=== PATIENT | male | born 1970 | race Caucasian/White ===

== ENCOUNTER 2016-06-30 09:19 | Emergency (ER) | payer BC ==
[~2016-06-30] VITALS: Ht 172.7 cm; Wt 100.0 kg
[~2016-06-30 09:19] MED LIST: ASPI-611 PO; FENO160T9 PO; LISI-15 PO; VERA180T7 PO
[2016-06-30 09:21] VITALS: Ht 172.7 cm; Wt 100.0 kg
--- OUTSIDE RECORDS SUMMARY | 2016-06-30 09:22 | XMS REPORT | Referral Summary ---
Author Author [facility] Organization [facility] Address Unknown Phone Unavailable Care Team Providers Care Respiratory Scientist Name Role Phone Priya Valerio Primary Care Physician [phone] Encounter [facility] [id number] Date(s): 03/05/16 - 03/05/16 [facility] [address] [place], [place] [address] Discharge Diagnosis: Hypertension Discharge Diagnosis: Hematuria Discharge Diagnosis: Ureteral stone with hydronephrosis Discharge Diagnosis: Hyperlipidemia Discharge Disposition: 01-Home or Self Care Attending Physician: Bridget Gutierrez MD Vital Signs Most recent to 1 oldest [Reference Range]: Blood Pressure 110/78 mmHg [90-140/60-90 mmHg] (03/05/16 8:49 AM) Problem List Condition Effective Dates Status Health Status Informant Dyslipidemia(Confirm Active ed) Essential Active hypertension (disorder)(Confirmed ) High Active cholesterol(Confirme d) Hyperlipidemia(Confi Active rmed) Hypertension(Confirm Active ed) Kidney Active stones(Confirmed) Muscle contraction Active headache(Confirmed) Overweight Active (finding)(Confirmed) Overweight(Confirmed Active ) Elevated Active cholesterol(Confirme d) Tension Active headache(Confirmed) Tension-type Active headache (disorder)(Confirmed ) Unspecified Active essential hypertension(Confirm ed) Allergies, Adverse Reactions, Alerts No Known Medication Allergies Medications Aspir 81 oral delayed release tablet 81 mg 1 tabs, Oral, Daily Start Date: 11/05/13 Status: Ordered atorvastatin 20 mg oral tablet 20 mg 1 tabs, Oral, Bedtime (once a day), # 90 tabs, 1 Refill(s), Pharmacy: [facility] #[id number], 1 tabs Oral Bedtime (once a day) Start Date: 11/30/15 Status: Ordered fenofibrate 160 mg oral tablet 160 mg 1 tabs, Oral, Daily, # 90 tabs, 1 Refill(s), Pharmacy: [facility] # [id number], 1 tabs Oral Daily Start Date: 11/30/15 Status: Ordered Flomax 0.4 mg oral capsule 0.4 mg 1 caps, Oral, Daily, # 30 caps, 0 Refill(s), Pharmacy: [facility] # [id number], 1 caps Oral Daily Start Date: 02/17/16 Status: Ordered Flomax 0.4 mg oral capsule 0.4 mg 1 caps, Oral, Daily, # 30 caps, 0 Refill(s) Start Date: 02/03/16 Status: Ordered lisinopril-hydrochlorothiazide 20 mg-12.5 mg oral tablet 1 tabs, Oral, Daily, # 90 tabs, 1 Refill(s), Pharmacy: [facility] #[id number] Start Date: 11/30/15 Status: Ordered verapamil 180 mg/24 hours oral capsule, extended release 1 tabs, Oral, Daily, # 90 tabs, 1 Refill(s), Pharmacy: [facility] #[id number] , 1 tabs Oral Daily Start Date: 11/30/15 Status: Ordered Results No data available for this section Immunizations Given and Recorded Vaccine Date Status Refusal Reason tetanus/diphth/pertuss (Tdap) adult/adol 11/30/15 Given tetanus-diphth toxoids (Td) adult/adol 02/26/04 Recorded Procedures Procedure Date Related Diagnosis Body Site Cystourethroscopy, with removal of foreign 03/05/16 body, calculus, or ureteral stent from urethra or bladder (separate procedure); simple Cystoscopy Ureteroscopy1 02/03/16 heart cath hernia repair orif right wrist 1auto-populated from documented surgical case Social History Social History Type Response Smoking Status Never smoker Assessment and Plan No data available for this section
--- OUTSIDE RECORDS SUMMARY | 2016-06-30 09:22 | XMS REPORT | Referral Summary ---
Author Author [facility] Organization [facility] Address Unknown Phone Unavailable Care Team Providers Care Rn Manager Name Role Phone Priya Valerio Primary Care Physician [phone] Encounter [facility] Date(s): 06/01/15 - 06/01/15 [facility] [address] [place] [email or web address] Discharge Diagnosis: Myalgia Discharge Disposition: 01-Home or Self Care Attending Physician: Marques Valerio MD Admitting Physician: Marques Valerio MD Vital Signs Most recent to 1 oldest [Reference Range]: Temperature Tympanic 36.1 degC [36.6-38.1 degC] *LOW* (06/01/15 8:47 AM) Peripheral Pulse 80 bpm Rate [60-100 bpm] (06/01/15 8:47 AM) Blood Pressure 131/81 mmHg [90-140/60-90 mmHg] (06/01/15 8:47 AM) Problem List Condition Effective Dates Status [...] Medications Aspir 81 oral delayed release tablet 1 tabs, Oral, Daily Start Date: 11/05/13 Status: Ordered atorvastatin 20 mg oral tablet 20 mg 1 tabs, Oral, Bedtime (once a day), # 90 tabs, 1 Refill(s), Pharmacy: [facility] #[id number], 1 tabs Oral Bedtime (once a day) Start Date: 06/01/15 Status: Ordered fenofibrate 160 mg oral tablet 160 mg 1 tabs, Oral, Daily, # 90 tabs, 1 Refill(s), Pharmacy: [facility] # [id number], 1 tabs Oral Daily Start Date: 06/01/15 Status: Ordered lisinopril-hydrochlorothiazide 20 mg-12.5 mg oral tablet 1 tabs, Oral, Daily, # 90 tabs, 1 Refill(s), Pharmacy: [facility] #[id number] Start Date: 06/01/15 Status: Ordered verapamil 180 mg/24 hours oral capsule, extended release 1 tabs, Oral, Daily, # 90 tabs, 1 Refill(s), Pharmacy: [facility] #[id number] , 1 tabs Oral Daily Start Date: 06/01/15 Status: Ordered Results Chemistry Most recent to 1 oldest [Reference Range]: Sodium Lvl [135-144 139 mEq/L mEq/L] (06/01/15 8:30 AM) Potassium Lvl 4.5 mEq/L [3.5-5.2 mEq/L] (06/01/15 8:30 AM) Chloride [99-111 105 mEq/L mEq/L] (06/01/15 8:30 AM) CO2 [23-31 mEq/L] 26 mEq/L (06/01/15 8:30 AM) AGAP [3-20] 8 (06/01/15 8:30 AM) BUN [9-21 mg/dL] 17 mg/dL (06/01/15 8:30 AM) Glucose Lvl [70-99 128 mg/dL mg/dL] *HI* (06/01/15 8:30 AM) Creatinine Lvl 1.02 mg/dL [0.72-1.25 mg/dL] (06/01/15 8:30 AM) eGFR [>60 mL/min] >60 mL/min 1 (06/01/15 8:30 AM) Calcium Lvl 10.2 mg/dL [8.9-10.5 mg/dL] (06/01/15 8:30 AM) Total CK [30-200 255 U/L U/L] *HI* (06/01/15 8:30 AM) Chol [0-199 mg/dL] 207 mg/dL *HI* (06/01/15 8:30 AM) Trig [0-149 mg/dL] 85 mg/dL (06/01/15 8:30 AM) HDL [40-84 mg/dL] 40 mg/dL (06/01/15 8:30 AM) LDL [0-130 mg/dL] 150 mg/dL *HI* (06/01/15 8:30 AM) VLDL Cholesterol 17 mg/dL [0-28 mg/dL] (06/01/15 8:30 AM) Cardiac Risk 5.2 [0.0-5.7] (06/01/15 8:30 AM) 1Result Comment: Multiply eGFR results by 1.21 for race. Immunizations Vaccine Date Refusal Reason tetanus-diphth toxoids (Td) adult/adol 02/26/04 Procedures Procedure Date Related Diagnosis Body Site Collection of venous blood by venipuncture 06/01/15 Social History Social History Type Response Smoking Status Never smoker Assessment and Plan Extracted from: Title: Office Visit Note Author: Marques Valerio MD Date: 06/01/15 Assessment/Plan Elevated cholesterol Hypertension Myalgia Ordered: Creatine Kinase Overall he seems to be doing well. I encouraged weight loss efforts and exercise. Labs today to include BMP, lipid panel, CPK. Continue current medications. 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
--- OUTSIDE RECORDS SUMMARY | 2016-06-30 09:22 | XMS REPORT | Continuity of Care Document ---
Author Author [facility] Address Unknown Phone Unavailable Care Team Providers Care Basket Turner Name Role Phone Marques Valerio PP Unavailable Payers Payer name Insurance type Covered democrat ID Authorization(s) Unknown Problems Condition Effective Dates (start - stop) Clinical Status Overweight - *Chronic Hypertension, Unspecified - *Chronic Hypertension, Unspecified - *Chronic Overweight - Chronic Hypertension, Unspecified - Chronic Other and unspecified hyperlipidemia - *Chronic Snoring - *Acute Family history of premature coronary artery diseas - *Chronic Hypertension, Benign - *Controlled Other and unspecified hyperlipidemia - *Chronic Kidney stone - *Resolved Other and unspecified hyperlipidemia - *Chronic Hypertension, Unspecified - *Chronic Hematuria - *Acute Abdominal pain, left upper quadrant - *Acute Hypertension, Benign - Uncertain Other and unspecified hyperlipidemia - Chronic TENSION HEADACHE NOS - Chronic Hypertension, Unspecified - Chronic Overweight - Chronic Family History Family Member Diagnosis Age At Onset Status Father (Alive) CAD Yes aunt (Unknown) Cancer - colon Yes Paternal grandmother (Unknown) Diabetes Yes aunt (Unknown) Hyperlipidemia Yes Paternal grandfather (Unknown) Premature CAD Yes Maternal grandmother (Unknown) Hypertension Yes Paternal grandfather (Unknown) Congestive heart failure Yes Maternal grandfather (Unknown) Hypertension Yes aunt (Unknown) Hypertension Yes Paternal grandfather (Unknown) Hypertension Yes Social History Social History Element Description Quantity Unknown Allergies, Adverse Reactions, Alerts Substance Reaction Severity Status Unknown Medications Medication Instructions Dosage Effective Dates (start - stop) Status fenofibrate 160 mg tablet Take 1 tablet by mouth every day. - Active lisinopril 20 mg-hydrochlorothiazide 12.5 mg tablet Take 1 by mouth every day. - Active verapamil ER 180 mg 24 hr capsule,extended release Take 1 tablet by mouth every day. - Active Aspir-81 81 mg tablet,delayed release take 1 tablet (81MG) by oral route every day 81 MG - Active Immunizations Vaccine Date Status Comments Td (adult) completed - Completed reason: previously given Results Test Name Date and Time Measure Units Reference Range Abnormal Flag Comments Panel Description: CBC WBC 08:11:00 7.4 K/uL 4.8-10.8 RBC 08:11:00 5.04 M/uL 4.00-5.20 HGB 08:11:00 15.2 g/dl 12.0-16.0 HCT 08:11:00 44.7 % 37.0-47.0 MCV 08:11:00 88.7 fL 82.0-99.0 MCH 08:11:00 30.2 pg 27.0-32.0 MCHC 08:11:00 34.0 g/dL 32.0-36.0 RDW 08:11:00 13.3 % 11.5-14.5 MPV 08:11:00 11.0 fL 8.8-14.8 Platelet Count 08:11:00 283 K/uL 150-400 Immature Granulocytes 08:11:00 0.3 % 0.0-1.0 Absolute Neutrophils 08:11:00 3.79 THOUS 1.90-7.00 Absolute Lymphocytes 08:11:00 2.24 THOUS 0.80-3.30 Absolute Monocytes 08:11:00 0.99 THOUS 0.30-1.00 Absolute Eosinophils 08:11:00 0.35 THOUS 0.00-0.50 Absolute Basophils 08:11:00 0.05 THOUS 0.00-0.20 Neutrophils 08:11:00 51 % 51-75 Lymphocytes 08:11:00 30 % 20-46 Monocytes 08:11:00 13 % 4-11 H Eosinophils 08:11:00 5 % 0-4 H Basophils 08:11:00 1 % 0-2 Testing performed at [facility] [address] [place] [address] Primer Inspector Mehdi Thompson MD Panel Description: Chemistry Profile Glucose 08:11:00 113 mg/dL 70-99 H BUN 08:11:00 21 mg/dL 7-19 H Creatinine 08:11:00 1.08 mg/dL 0.57-1.11 Calcium 08:11:00 9.8 mg/dL 8.9-10.5 Sodium 08:11:00 142 mEq/L 135-144 Potassium 08:11:00 4.6 mEq/L 3.5-5.2 Chloride 08:11:00 108 mEq/L 99-111 CO2 08:11:00 26 mEq/L 22-31 Albumin 08:11:00 4.4 g/dL 3.5-5.0 Bilirubin Total 08:11:00 0.6 mg/dL 0.2-1.2 Alkaline Phosphatase 08:11:00 58 U/L 40-150 Protein 08:11:00 7.2 g/dL 6.4-8.3 ALT (SGPT) 08:11:00 36 U/L 0-55 AST (SGOT) 08:11:00 20 U/L 5-34 Anion Gap 08:11:00 8 3-20 Globulin 08:11:00 2.8 g/dL 1.8-4.0 Testing performed at [facility] [address] [place] [id number] Primer Inspector Mehdi Thompson MD Panel Description: Lipid Profile-[facility] Cholesterol 08:11:00 248 mg/dL 0-199 H Triglycerides 08:11:00 137 mg/dL 0-149 HDL Cholesterol 08:11:00 39 mg/dL 40-84 L LDL Cholesterol 08:11:00 182 mg/dL 0-130 H VLDL Cholesterol 08:11:00 27 mg/dL 0-28 Cardiac Risk 08:11:00 6.4 0.0-5.0 H Testing performed at [facility] [address] [place], [place] [address] Primer Inspector Mehdi Thompson MD Panel Description: Non-HDL Cholesterol-[facility] Non-HDL Cholesterol 08:11:00 209 mg/dL 0-159 H Testing performed at [facility] [address] [place], [place] [address] Primer Inspector Mehdi Thompson MD Panel Description: EGFR-[facility] eGFR 08:11:00 55 mL/min >60 A Multiply eGFR results by 1.21 for race.Testing performed at [facility] [address] [place], [place] [address] Primer Inspector Mehdi Thompson MD Panel Description: Urinalysis with Reflex Microscopic Appearance 08:11:00 Clear Color 08:11:00 Yellow Glucose, Urine 08:11:00 Negative Negative Ketones 08:11:00 Negative Negative Blood 08:11:00 Negative Negative Protein 08:11:00 Negative Negative Nitrites 08:11:00 Negative Negative Bilirubin 08:11:00 Negative Negative Specific [place] 08:11:00 1.025 1.003-1.03 pH 08:11:00 5.0 5.0-8.0 Urobilinogen 08:11:00 0.2 mg/dL <1.0 Leukocyte Esterase 08:11:00 Negative Negative Testing performed at [facility] [address] [place], [place] [id number] Primer Inspector Mehdi Thompson MD Vital Signs Date / Time: Height Weight Pulse Rate Blood Pressure Temperature /14:11:00 67.00 in 219.00 lbs 68 /min 148/80 mm[Hg] Procedures Procedure Date Unknown Encounters Encounter Location Date Patient Visit [facility] Patient Visit [facility] Patient Visit [facility] Patient Visit [facility] Patient Visit [facility] Patient Visit [facility] Advance Directives Directive Effective Date Unknown
--- OUTSIDE RECORDS SUMMARY | 2016-06-30 09:22 | XMS REPORT | Referral Summary ---
Author Author [facility] Organization [facility] Address Unknown Phone Unavailable Care Team Providers Care Network Account Manager Name Role Phone Priya Valerio Primary Care Physician [phone] Encounter Date(s): 02/17/16 - 02/17/16 [facility] [address] [place], [place] [address] Discharge Disposition: 01-Home or Self Care Attending Physician: Solomon Key MD Admitting Physician: Solomon Key MD Vital Signs No data available for this section Problem List Condition Effective Dates Status Health [...] day), # 90 tabs, 1 Refill(s), Pharmacy: [facility] #[id number], 1 tabs Oral Bedtime (once a day) Start Date: 11/30/15 Status: Ordered fenofibrate 160 mg oral tablet 160 mg 1 tabs, Oral, Daily, # 90 tabs, 1 Refill(s), [facility] # [id number], 1 tabs Oral Daily Start Date: 11/30/15 Status: Ordered Flomax 0.4 mg oral capsule 0.4 mg 1 caps, Oral, Daily, # 30 caps, 0 Refill(s), Pharmacy: [facility] # [id number], 1 caps Oral Daily Start Date: 02/17/16 Status: Ordered Flomax 0.4 mg oral capsule 0.4 mg 1 caps, Oral, Daily, # 30 caps, 0 Refill(s) Start Date: 02/03/16 Status: Ordered lisinopril-hydrochlorothiazide 20 mg-12.5 mg oral tablet 1 tabs, Oral, Daily, # 90 tabs, 1 Refill(s), Pharmacy: [facility] #[id number] Start Date: 11/30/15 Status: Ordered verapamil 180 mg/24 hours oral capsule, extended release 1 tabs, Oral, Daily, # 90 tabs, 1 Refill(s), Pharmacy: [facility] #[id number] , 1 tabs Oral Daily Start Date: 11/30/15 Status: Ordered Results No data available for this section Immunizations Given and Recorded Vaccine Date Status Refusal Reason tetanus/diphth/pertuss (Tdap) adult/adol 11/30/15 Given tetanus-diphth toxoids (Td) adult/adol 02/26/04 Recorded Procedures Procedure Date Related Diagnosis Body Site Cystoscopy Ureteroscopy1 02/03/16 heart cath hernia repair orif right wrist 1auto-populated from documented surgical case Social History Social History Type Response Smoking Status Never smoker Assessment and Plan No data available for this section
--- OUTSIDE RECORDS SUMMARY | 2016-06-30 09:22 | XMS REPORT | Referral Summary ---
Author Author [facility] Organization [facility] Address Unknown Phone Unavailable Care Team Providers Care Commodity Supervisor Name Role Phone Priya Valerio Primary Care Physician [phone] Encounter [facility] Date(s): 11/11/14 - 11/11/14 [facility] [address] [place] [address] Discharge Diagnosis: Elevated cholesterol Discharge Diagnosis: UNSPECIFIED ESSENTIAL HYPERTENSION Discharge Disposition: 01-Home or Self Care Attending Physician: Carlos Triana APRN Admitting Physician: Carlos Triana APRN Referring Physician: Marques Valerio MD Vital Signs Most recent to 1 oldest [Reference Range]: Temperature Tympanic 36.8 degC [36.6-38.1 degC] (11/11/14 2:05 PM) Peripheral Pulse 84 bpm Rate [60-100 bpm] (11/11/14 2:05 PM) Respiratory Rate 18 br/min [14-20 br/min] (11/11/14 2:05 PM) Blood Pressure 122/76 mmHg [90-140/60-90 mmHg] (11/11/14 2:05 PM) Problem List Condition Effective Dates Status Health [...] day), # 90 tabs, 1 Refill(s), Pharmacy: [facility] #[id number], 1 tabs Oral Bedtime (once a day) Start Date: 11/11/14 Status: Ordered fenofibrate 160 mg oral tablet 1 tabs, Oral, Daily, # 90 tabs, 1 Refill(s), Pharmacy: [facility] #[id number] , 1 tabs Oral Daily Start Date: 11/06/13 Status: Ordered lisinopril-hydrochlorothiazide 20 mg-12.5 mg oral tablet 1 tabs, Oral, Daily, # 90 tabs, 1 Refill(s), Pharmacy: [facility] #[id number] Start Date: 11/06/13 Status: Ordered verapamil 180 mg/24 hours oral capsule, extended release 1 tabs, Oral, Daily, # 90 tabs, 1 Refill(s), Pharmacy: [facility] #[id number] , 1 tabs Oral Daily Start Date: 11/11/14 Status: Ordered Results No data available for this section Immunizations Vaccine Date Refusal Reason tetanus-diphth toxoids (Td) adult/adol 02/26/04 Procedures No data available for this section Social History Social History Type Response Smoking Status Never smoker Assessment and Plan Extracted from: Title: Office Visit Note Author: Carlos Triana APRN Date: 11/11/14 Assessment/Plan Elevated cholesterol We will check a fasting lipid panel another day as he is not fasting. He is to continue his atorvastatin. Ordered: Lipid Panel UNSPECIFIED ESSENTIAL HYPERTENSION We will check a comprehensive metabolic panel to assess liver and kidney function as well as his electrolytes. He will continue to take his verapamil and lisinopril HCTZ for this issue. He will make an appointment to be seenin 6 months for thisproblem. Ordered: Comprehensive Metabolic Panel Orders: atorvastatin, 20 mg 1 tabs, Oral, Bedtime (once a day), # 90 tabs, 1 Refill(s), Pharmacy: [facility] #[id number], 1 tabs Oral Bedtime (once a day) verapamil, 1 tabs, Oral, Daily, # 90 tabs, 1 Refill(s), Pharmacy: [facility] #[id number], 1 tabs Oral Daily
--- OUTSIDE RECORDS SUMMARY | 2016-06-30 09:22 | XMS REPORT | Referral Summary ---
Author Author [facility] Organization [facility] Address Unknown Phone Unavailable Care Team Providers Care Nut Sorter Name Role Phone Priya Valerio Primary Care Physician [phone] Encounter [facility] Date(s): 11/30/15 - 11/30/15 [facility] [address] [place] [address] Discharge Diagnosis: Impaired fasting glucose Discharge Diagnosis: Dyslipidemia Discharge Diagnosis: Overweight (finding) Discharge Diagnosis: Essential hypertension (disorder) Discharge Disposition: 01-Home or Self Care Attending Physician: Marques Valerio MD Admitting Physician: Marques Valerio MD Vital Signs Most recent to 1 oldest [Reference Range]: Temperature Tympanic 36 degC [36.6-38.1 degC] *LOW* (11/30/15 8:39 AM) Peripheral Pulse 84 bpm Rate [60-100 bpm] (11/30/15 8:39 AM) Blood Pressure 123/92 mmHg [90-140/60-90 mmHg] (11/30/15 8:39 AM) Problem List Condition Effective Dates Status [...] day), # 90 tabs, 1 Refill(s), Pharmacy: [facility] #[id number], 1 tabs Oral Bedtime (once a day) Start Date: 11/30/15 Status: Ordered fenofibrate 160 mg oral tablet 160 mg 1 tabs, Oral, Daily, # 90 tabs, 1 Refill(s), Pharmacy: [facility] # [id number], 1 tabs Oral Daily Start Date: 11/30/15 Status: Ordered lisinopril-hydrochlorothiazide 20 mg-12.5 mg oral tablet 1 tabs, Oral, Daily, # 90 tabs, 1 Refill(s), Pharmacy: [facility] #[id number] Start Date: 11/30/15 Status: Ordered verapamil 180 mg/24 hours oral capsule, extended release 1 tabs, Oral, Daily, # 90 tabs, 1 Refill(s), Pharmacy: [facility] #[id number] , 1 tabs Oral Daily Start Date: 11/30/15 Status: Ordered Results Chemistry Most recent to 1 oldest [Reference Range]: Sodium Lvl [135-144 141 mEq/L mEq/L] (11/30/15 9:30 AM) Potassium Lvl 4.6 mEq/L [3.5-5.2 mEq/L] (11/30/15 9:30 AM) Chloride [99-111 107 mEq/L mEq/L] (11/30/15 9:30 AM) CO2 [23-31 mEq/L] 25 mEq/L (11/30/15 9:30 AM) AGAP [3-20] 9 (11/30/15 9:30 AM) BUN [9-21 mg/dL] 17 mg/dL (11/30/15 9:30 AM) Glucose Lvl [70-99 123 mg/dL mg/dL] *HI* (11/30/15 9:30 AM) Creatinine Lvl 1.10 mg/dL [0.72-1.25 mg/dL] (11/30/15 9:30 AM) eGFR [>60 mL/min] >60 mL/min 1 (11/30/15 9:30 AM) Calcium Lvl 10.0 mg/dL [8.9-10.5 mg/dL] (11/30/15 9:30 AM) Chol [0-199 mg/dL] 191 mg/dL (11/30/15 9:30 AM) Trig [0-149 mg/dL] 74 mg/dL (11/30/15 9:30 AM) HDL [40-84 mg/dL] 44 mg/dL (11/30/15 9:30 AM) LDL [0-130 mg/dL] 132 mg/dL *HI* (11/30/15 9:30 AM) VLDL Cholesterol 15 mg/dL [0-28 mg/dL] (11/30/15 9:30 AM) Cardiac Risk 4.3 [0.0-5.7] (11/30/15 9:30 AM) Hgb A1c [4.1-5.6 %] 6.7 % *HI* (11/30/15 9:30 AM) eAvg Glucose 145.6 mg/dL (11/30/15 9:30 AM) 1Result Comment: Multiply eGFR results by 1.21 for race. Immunizations Vaccine Date Refusal Reason tetanus/diphth/pertuss (Tdap) adult/adol 11/30/15 tetanus-diphth toxoids (Td) adult/adol 02/26/04 Procedures Procedure Date Related Diagnosis Body Site Collection of venous blood by venipuncture 11/30/15 Social History Social History Type Response Smoking Status Never smoker Assessment and Plan Extracted from: Title: Ambulatory Patient Education Author: Marques Valerio MD Date: Cardiovascular Obesity Obesity is defined as having too much total body fat and a body mass index (BMI ) of 30 or more. BMI is an estimate of body fat and is calculated from your height and weight. BMI is typically calculated by your health care provider during regular wellness visits. Obesity happens when you consume more calories than you can burn by exercising or performing daily physical tasks. Prolonged obesity can cause major illnesses or emergencies, such as: Stroke. Heart disease. Diabetes. Cancer. Arthritis. High blood pressure (hypertension). High cholesterol. Sleep apnea. Erectile dysfunction. Infertility problems. CAUSES Regularly eating unhealthy foods. Physical inactivity. Certain disorders, such as an underactive thyroid (hypothyroidism), Lafayette's syndrome, and polycystic ovarian syndrome. Certain medicines, such as steroids, some depression medicines, and antipsychotics. Genetics. Lack of sleep. DIAGNOSIS A health care provider can diagnose obesity after calculating your BMI. Obesity will be diagnosed if your BMI is 30 or higher. There are other methods of measuring obesity levels. Some other methods include measuring your skinfold thickness, your waist circumference, and comparing your hip circumference to your waist circumference. TREATMENT A healthy treatment program includes some or all of the following: Long-term dietary changes. Exercise and physical activity. Behavioral and lifestyle changes. Medicine only under the supervision of your health care provider. Medicines may help, but only if they are used with diet and exercise programs. If your BMI is 40 or higher, your health care provider may recommend specialized surgery or programs to help with weight loss. An unhealthy treatment program includes: Fasting. Fad diets. Supplements and drugs. These choices do not succeed in long-term weight control. HOME CARE INSTRUCTIONS Exercise and perform physical activity as directed by your health care provider. To increase physical activity, try the following: Use stairs instead of elevators. Park farther away from store entrances. Garden, bike, or walk instead of watching television or using the computer. Eat healthy, low-calorie foods and drinks on a regular basis. Eat more fruits and vegetables. Use low-calorie cookbooks or take healthy cooking classes. Limit fast food, sweets, and processed snack foods. Eat smaller portions. Keep a daily journal of everything you eat. There are many free websites to help you with this. It may be helpful to measure your foods so you can determine if you are eating the correct portion sizes. Avoid drinking alcohol. Drink more water and drinks without calories. Take vitamins and supplements only as recommended by your health care provider. Weight-loss support groups, registered dietitians, counselors, and stress reduction education can also be very helpful. SEEK IMMEDIATE MEDICAL CARE IF: You have chest pain or tightness. You have trouble breathing or feel short of breath. You have weakness or leg numbness. You feel confused or have trouble talking. You have sudden changes in your vision. This information is not intended to replace advice given to you by your health care provider. Make sure you discuss any questions you have with your health care provider. Document Released: 03/21/2005 Document Revised: 03/04/2015 Document Reviewed: [employer] Patient Information 2016 [facility], [facility]. ENT Sleep Apnea Sleep apnea is a sleep disorder characterized by abnormal pauses in breathing while you sleep. When your breathing pauses, the level of oxygen in your blood decreases. This causes you to move out of deep sleep and into light sleep. As a result, your quality of sleep is poor, and the system that carries your blood throughout your body (cardiovascular system) experiences stress. If sleep apnea remains untreated, the following conditions can develop: High blood pressure (hypertension). Coronary artery disease. Inability to achieve or maintain an erection (impotence). Impairment of your thought process (cognitive dysfunction). There are three types of sleep apnea: 1.Obstructive sleep apneaPauses in breathing during sleep because of a blocked airway. 2.Central sleep apneaPauses in breathing during sleep because the area of the brain that controls your breathing does not send the correct signals to the muscles that control breathing. 3. Mixed sleep apneaA combination of both obstructive and central sleep apnea. RISK FACTORS The following risk factors can increase your risk of developing sleep apnea: Being overweight. Smoking. Having narrow passages in your nose and throat. Being of older age. Being male. Alcohol use. Sedative and tranquilizer use. Ethnicity. Among individuals younger than 35 years, Americans are at increased risk of sleep apnea. SYMPTOMS Difficulty staying asleep. Daytime sleepiness and fatigue. Loss of energy. Irritability. Loud, heavy snoring. Morning headaches. Trouble concentrating. Forgetfulness. Decreased interest in sex. Unexplained sleepiness. DIAGNOSIS In order to diagnose sleep apnea, your caregiver will perform a physical examination. A sleep study done in the comfort of your own home may be appropriate if you are otherwise healthy. Your caregiver may also recommend that you spend the night in a sleep lab. In the sleep lab, several monitors record information about your heart, lungs, and brain while you sleep. Your leg and arm movements and blood oxygen level are also recorded. TREATMENT The following actions may help to resolve mild sleep apnea: Sleeping on your side. Using a decongestant if you have nasal congestion. Avoiding the use of depressants, including alcohol, sedatives, and narcotics. Losing weight and modifying your diet if you are overweight. There also are devices and treatments to help open your airway: Oral appliances. These are custom-made mouthpieces that shift your lower jaw forward and slightly open your bite. This opens your airway. Devices that create positive airway pressure. This positive pressure "splints" your airway open to help you breathe better during sleep. The following devices create positive airway pressure: Continuous positive airway pressure (CPAP) device. The CPAP device creates a continuous level of air pressure with an air pump. The air is delivered to your airway through a mask while you sleep. This continuous pressure keeps your airway open. Nasal expiratory positive airway pressure (EPAP) device. The EPAP device creates positive air pressure as you exhale. The device consists of single-use valves, which are inserted into each nostril and held in place by adhesive. The valves create very little resistance when you inhale but create much more resistance when you exhale. That increased resistance creates the positive airway pressure. This positive pressure while you exhale keeps your airway open , making it easier to breath when you inhale again. Bilevel positive airway pressure (BPAP) device. The BPAP device is used mainly in patients with central sleep apnea. This device is similar to the CPAP device because it also uses an air pump to deliver continuous air pressure through a mask. However, with the BPAP machine, the pressure is set at two different levels. The pressure when you exhale is lower than the pressure when you inhale. Surgery. Typically, surgery is only done if you cannot comply with less invasive treatments or if the less invasive treatments do not improve your condition. Surgery involves removing excess tissue in your airway to create a wider passage way. This information is not intended to replace advice given to you by your health care provider. Make sure you discuss any questions you have with your health care provider. Document Released: 02/01/2003 Document Revised: 03/04/2015 Document Reviewed: [facility] Patient Information 2016 [employer] [facility]. No follow up information was provided. Extracted from: Title: CRMMP Author: Marques Valerio MD Date: 11/30/15 Assessment/Plan Labs today to include lipids, A1c, BMP. Update Tdap today. Continue current medications. Advised exercise and weight loss efforts. Advised observation regarding sleep apnea. Follow-up 6 months or sooner if needed. 1.Dyslipidemia Ordered: Lipid Panel 2.Essential hypertension (disorder) Ordered: Basic Metabolic Panel 3.Overweight (finding) 4.Impaired fasting glucose Ordered: Hemoglobin A1c
--- OUTSIDE RECORDS SUMMARY | 2016-06-30 09:23 | XMS REPORT | Referral Summary ---
Author Author [facility] Organization [facility] Address Unknown Phone Unavailable Care Team Providers Care Can Inspector Name Role Phone Iman Priya Primary Care Physician [phone] Encounter [facility] [id number] Date(s): 02/01/16 - 02/01/16 [facility] [address] [place], [place] [address] Discharge Diagnosis: Abdominal pain Discharge Diagnosis: Ureteral stone with hydronephrosis Discharge Diagnosis: Essential hypertension (disorder) Discharge Diagnosis: Dyslipidemia Discharge Diagnosis: Obesity, unspecified Discharge Diagnosis: Kidney stones Discharge Disposition: 01-Home or Self Care Attending Physician: Bridget Gutierrez MD Admitting Physician: Bridget Gutierrez MD Vital Signs Most recent to 1 oldest [Reference Range]: Blood Pressure 122/80 mmHg [90-140/60-90 mmHg] (02/01/16 2:57 PM) Problem List Condition Effective Dates Status [...] day), # 90 tabs, 1 Refill(s), Pharmacy: [facility] #[id number], 1 tabs Oral Bedtime (once a day) Start Date: 11/30/15 Status: Ordered Cipro 500 mg oral tablet 500 mg 1 tabs, Oral, q12hr, X 7 days, # 14 tabs, 0 Refill(s), Pharmacy: [facility] #[id number], 1 tabs Oral q12hr,x7 days Start Date: 02/01/16 Stop Date: 02/08/16 Status: Ordered fenofibrate 160 mg oral tablet 160 mg 1 tabs, Oral, Daily, # 90 tabs, 1 Refill(s), Pharmacy: [facility] # [id number], 1 tabs Oral Daily Start Date: 11/30/15 Status: Ordered lisinopril-hydrochlorothiazide 20 mg-12.5 mg oral tablet 1 tabs, Oral, Daily, # 90 tabs, 1 Refill(s), Pharmacy: [facility] #[id number] Start Date: 11/30/15 Status: Ordered [place] 5 mg-325 mg oral tablet 1 tabs, Oral, q6hr, as needed for pain, # 15 tabs, 0 Refill(s) Start Date: 02/01/16 Stop Date: 02/15/16 Status: Ordered verapamil 180 mg/24 hours oral capsule, extended release 1 tabs, Oral, Daily, # 90 tabs, 1 Refill(s), Pharmacy: [facility] #[id number] , 1 tabs Oral Daily Start Date: 11/30/15 Status: Ordered Results No data available for this section Immunizations Vaccine Date Refusal Reason tetanus/diphth/pertuss (Tdap) adult/adol 11/30/15 tetanus-diphth toxoids (Td) adult/adol 02/26/04 Procedures No data available for this section Social History Social History Type Response Smoking Status Never smoker Assessment and Plan Extracted from: Title: Ambulatory Patient Education Author: Bridget Gutierrez MD Date: Procedures Ureteroscopy Ureteroscopy is a surgical procedure to check for and treat a problem inside part of your urinary tract. You may need this procedure if you have frequent urinary tract infections, blood in your urine, or a stone in one of the tubes that carries urine from your kidneys to your bladder (ureter). You may also have this procedure if your health care provider wants to check for an abnormal growth in your ureter. To do this, your surgeon passes a thin, flexible telescope (ureteroscope) into one or both ureters. LET YOUR HEALTH CARE PROVIDER KNOW ABOUT: Any allergies you have. All medicines you are taking, including vitamins, herbs, eye drops, creams, and fixb-keg-kqdcuue medicines. Previous problems you or members of your family have had with the use of anesthetics. Any blood disorders you have. Previous surgeries you have had. Medical conditions you have. RISKS AND COMPLICATIONS Generally, this is a safe procedure. However, as with any procedure, problems can occur. Possible problems include: Bleeding. Pain. Infection. Scarring that narrows the ureter (stricture). Creating a hole in the ureter (perforation). BEFORE THE PROCEDURE You may be given a medicine to make you sleep during ureteroscopy ( general anesthetic). Do not eat or drink anything for 68 hours before the procedure. You may also need to have a urine test before the procedure to check for any sign of infection. You may be given an antibiotic medicine by injection or through an IV tube before the procedure to prevent infection. Arrange for someone to take you home after the procedure. PROCEDURE You may be given one of the following medicines for this procedure: A medicine that makes you go to sleep (general anesthetic). A medicine injected into your spine that numbs your body below the waist (spinal anesthetic). This procedure is usually done as outpatient surgery and usually takes about 30 minutes. During the procedure: The opening from which you urinate (urethra) will be cleaned with a germ- killing solution. The ureteroscope will be passed through your urethra into your bladder. A saltwater solution will flow through the ureteroscope to fill your bladder. This will help the surgeon see the openings of your ureters clearly. The ureteroscope will then be passed into your ureter. If a growth is found, your surgeon may take a piece of the growth (biopsy ) to examine under a microscope. If a stone is found, your surgeon may remove the stone through the ureteroscope or break up the stone using a laser, shock waves, or electrical energy. In some cases, the surgeon may put in a tube that keeps your ureter open (ureteral stent). When the procedure is over, the surgeon will remove the scope. Then your bladder will be emptied and you will go to the recovery area. AFTER THE PROCEDURE After ureteroscopy, you will remain in the recovery area until the anesthesia wears off and your surgeon says you can go home. This information is not intended to replace advice given to you by your health care provider. Make sure you discuss any questions you have with your health care provider. Document Released: 02/16/2014 Document Reviewed: 02/16/2014 [employer] Interactive Patient Education 2016 [employer] No follow up information was provided.
--- OUTSIDE RECORDS SUMMARY | 2016-06-30 09:23 | XMS REPORT | Continuity of Care Document ---
Author Author [facility] Organization [facility] Address Unknown Phone Unavailable Allergies Active Description Code Type Severity Reaction Onset Reported/Identified Relationship to Patient Clinical Status Yes No Known Medication Allergies NKMA N/A N/A 11/05/2013 Medications Problems Procedures Results Test Result Range CBC With Platelet and Differential - 02/01/16 10:10 Absolute Basophils 0.08 10*3/uL 0.00- 0.30 Absolute Eosinophils 0.31 10*3 0.00-0.60 Absolute Lymphocytes 2.04 10*3 1.00-4.00 Absolute Monocytes 0.83 10*3 0.20-0.80 Absolute Neutrophils 5.78 10*3 2.50-7.00 Basophils 1 % 0-2 Eosinophils 3 % 0-6 HCT 42.4 % 40.0-54.0 HGB 14.5 g/dL 12.0-16.0 Lymphocytes 23 % 20-40 MCH 30.1 pg 26.0-34.0 MCHC 34.2 g/dL 32.0-36.0 MCV 88.1 fL 80.0-96.0 Monocytes 9 % 4-8 MPV 10.0 fL 8.8-14.8 Neutrophils 64 % 50-70 Platelet Count 293 K/uL 150-400 RBC 4.81 10*6/uL 3.70-5.20 RDW 12.9 % 0.0-14.5 WBC 9.0 K/uL 5.0-10.0 i-STAT Metabolic Panel WB - 02/01/16 10:10 BUN Venous 22 mg/dl 4-20 Calcium Ionized Venous 1.27 mmol/L 1.19- 1.41 Creatinine Venous 1.1 mg/dL 0.7-1.2 Glucose Venous 109 mg/dL 70-100 Potassium, WB 4.3 mmol/L 3.6-5.1 Sodium Venous 142 mmol/L 136-144 Total CO2 Venous 23 mmol/L 25-29 Venous CL 103 mmol/L 99-109 Urinalysis with reflex microscopic - 02/01/16 10:22 Appearance Cloudy NA Urine Microscopic - 02/01/16 10:22 Bacteria Rare NA Epithelial Cells 5 /hpf Granular Casts 1 /LPF RBC, Urine >50 /hpf 0-2 Urine Mucus Present NA WBC, Urine 0 /hpf 0-4 Protime (INR) - 02/03/16 12:15 INR 1.0 NA 0.9-1.2 PTT - 02/03/16 12:15 PTT 25.3 seconds 25.0-35.0 Hemoglobin A1C - 02/03/16 12:15 Hemoglobin A1C 6.3 % 4.1-5.6 Estimated Average Glucose - 02/03/16 12:15 Estimated Average Glucose 134.1 mg/dL Chem 8 NPT - 02/03/16 12:17 Anion Gap 15 NA 3-20 BUN Venous 16 mg/dl 4-20 Calcium Ionized Venous 1.27 mmol/L 1.19- 1.41 Creatinine Venous 0.9 mg/dL 0.7-1.2 Glucose Venous 97 mg/dL 70-100 Potassium, WB 4.0 mEq/L 3.6-5.1 Sodium Venous 144 mEq/L 136-144 Total CO2 Venous 26 mEq/L 25-29 Venous CL 103 mEq/L 99-109 HCT Venous 45.0 % 42.0-52.0 HGB Venous NPT 15.3 g/dL 14.0-18.0 Encounters AC[facility] No. Visit Date/Time Discharge Status Pt. Type Provider Facility Loc./Unit Complaint [id number] 03/02/2013 14:10:00 03/02/2013 23 :59:59 CLS Outpatient
--- OUTSIDE RECORDS SUMMARY | 2016-06-30 09:23 | XMS REPORT | Referral Summary ---
Author Author [facility] Organization [facility] Address Unknown Phone Unavailable Care Team Providers Care Marketing Assistant Retail Division Name Role Phone Priya Valerio Primary Care Physician [phone] Encounter [facility] Date(s): 02/03/16 - 02/03/16 [facility] [address] [place] [address] [phone] Discharge Diagnosis: Essential hypertension (disorder) Discharge Diagnosis: Dyslipidemia Discharge Diagnosis: Ureteral stone with hydronephrosis Discharge Diagnosis: Kidney stones Discharge Disposition: 01-Home or Self Care Attending Physician: Bridget Gutierrez MD Admitting Physician: Bridget Gutierrez MD Vital Signs Most recent to 1 oldest [Reference Range]: Temperature Tympanic 36.4 degC [36.6-38.1 degC] *LOW* (02/03/16 4:15 PM) Temperature Temporal 36.6 degC Artery [36.3-37.8 (02/03/16 11:55 AM) degC] Peripheral Pulse 74 bpm Rate [60-100 bpm] (02/03/16 4:15 PM) Respiratory Rate 16 br/min [14-20 br/min] (02/03/16 4:15 PM) Blood Pressure 153/95 mmHg [90-140/60-90 mmHg] *HI* (02/03/16 4:15 PM) SpO2 95 % (02/03/16 4:15 PM) Problem List Condition Effective Dates Status [...] day), # 90 tabs, 1 Refill(s), Pharmacy: [facility] #[id number], 1 tabs Oral Bedtime (once a day) Start Date: 11/30/15 Status: Ordered Cipro 500 mg oral tablet 500 mg 1 tabs, Oral, q12hr, X 7 days, # 14 tabs, 0 Refill(s), Pharmacy: [facility] #[id number], 1 tabs Oral q12hr,x7 days Start Date: 02/01/16 Stop Date: 02/08/16 Status: Ordered fenofibrate 160 mg oral tablet 160 mg 1 tabs, Oral, Daily, # 90 tabs, 1 Refill(s), Pharmacy: [facility] # [id number], 1 tabs Oral Daily Start Date: 11/30/15 Status: Ordered Flomax 0.4 mg oral capsule 0.4 mg 1 caps, Oral, Daily, # 30 caps, 0 Refill(s) Start Date: 02/03/16 Status: Ordered lisinopril-hydrochlorothiazide 20 mg-12.5 mg oral tablet 1 tabs, Oral, Daily, # 90 tabs, 1 Refill(s), Pharmacy: [facility] #[id number] Start Date: 11/30/15 Status: Ordered verapamil 180 mg/24 hours oral capsule, extended release 1 tabs, Oral, Daily, # 90 tabs, 1 Refill(s), Pharmacy: [facility] #[id number] , 1 tabs Oral Daily Start Date: 11/30/15 Status: Ordered Results Coagulation Most recent to 1 oldest [Reference Range]: INR [0.9-1.2] 1.0 (02/03/16 12:15 PM) PTT [25.0-35.0 25.3 seconds seconds] (02/03/16 12:15 PM) Chemistry Most recent to 1 oldest [Reference Range]: Sodium Venous 144 mEq/L [136-144 mEq/L] (02/03/16 12:17 PM) Potassium Venous 4.0 mEq/L 1 [3.6-5.1 mEq/L] (02/03/16 12:17 PM) Calcium Ionized 1.27 mmol/L Venous [1.19-1.41 (02/03/16 12:17 PM) mmol/L] Total CO2 Venous 26 mEq/L [25-29 mEq/L] (02/03/16 12:17 PM) HGB Venous NPT 15.3 gm/dL [14.0-18.0 gm/dL] (02/03/16 12:17 PM) HCT Venous 45.0 % [42.0-52.0 %] (02/03/16 12:17 PM) Glucose Venous 97 mg/dL [70-100 mg/dL] (02/03/16:17 PM) BUN Venous [4-20] 16 (02/03/16 12:17 PM) Creatinine Venous 0.9 mg/dL [0.7-1.2 mg/dL] (02/03/16:17 PM) Venous CL [99-109 103 mEq/L mEq/L] (02/03/16 12:17 PM) Anion Gap, Andrae 15 [3-20] (02/03/16 12:17 PM) Hgb A1c [4.1-5.6 %] 6.3 % *HI* (02/03/16 12:15 PM) eAvg Glucose 134.1 mg/dL (02/03/16 12:15 PM) 1Result Comment: This test was performed on a whole blood specimen. The presence or absence of hemolysis cannot be assessed. Hemolysis can falsely elevate potassium levels. Normals are for venous specimens only. Immunizations Vaccine Date Refusal Reason tetanus/diphth/pertuss (Tdap) adult/adol 11/30/15 tetanus-diphth toxoids (Td) adult/adol 02/26/04 Procedures Procedure Date Related Diagnosis Body Site Cystoscopy Ureteroscopy1 02/03/16 heart cath hernia repair orif right wrist 1auto-populated from documented surgical case Social History Social History Type Response Smoking Status Never smoker Assessment and Plan No data available for this section
--- OUTSIDE RECORDS SUMMARY | 2016-06-30 09:23 | XMS REPORT | Referral Summary ---
Author Author [facility] Organization [facility] Address Unknown Phone Unavailable Care Team Providers Care Computer Operations Technician Name Role Phone Priya Valerio Primary Care Physician [phone] Encounter VC Date(s): 02/01/16 - 02/01/16 [facility] [address] [place] [address] Discharge Disposition: 01-Home or Self Care Attending Physician: Carlos Triana APRN Admitting Physician: Carlos Triana APRN Vital Signs Most recent to 1 oldest [Reference Range]: Temperature Tympanic 36.6 degC [36.6-38.1 degC] (02/01/16 9:21 AM) Peripheral Pulse 64 bpm Rate [60-100 bpm] (02/01/16 9:21 AM) Blood Pressure 162/102 mmHg [90-140/60-90 mmHg] *HI* (02/01/16 9:21 AM) SpO2 98 % (02/01/16 9:21 AM) Problem List Condition Effective Dates Status [...] day), # 90 tabs, 1 Refill(s), Pharmacy: [facility] #[id number], 1 tabs Oral Bedtime (once a day) Start Date: 11/30/15 Status: Ordered Cipro 500 mg oral tablet 500 mg 1 tabs, Oral, q12hr, X 7 days, # 14 tabs, 0 Refill(s), Pharmacy: [facility] #[id number], 1 tabs Oral q12hr,x7 days Start Date: 02/01/16 Stop Date: 02/08/16 Status: Ordered fenofibrate 160 mg oral tablet 160 mg 1 tabs, Oral, Daily, # 90 tabs, 1 Refill(s), Pharmacy: [facility] # [id number], 1 tabs Oral Daily Start Date: 11/30/15 Status: Ordered lisinopril-hydrochlorothiazide 20 mg-12.5 mg oral tablet 1 tabs, Oral, Daily, # 90 tabs, 1 Refill(s), Pharmacy: [facility] #[id number] Start Date: 11/30/15 Status: Ordered [place] 5 mg-325 mg oral tablet 1 tabs, Oral, q6hr, as needed for pain, # 15 tabs, 0 Refill(s) Start Date: 02/01/16 Stop Date: 02/15/16 Status: Ordered verapamil 180 mg/24 hours oral capsule, extended release 1 tabs, Oral, Daily, # 90 tabs, 1 Refill(s), Pharmacy: [facility] #[id number] , 1 tabs Oral Daily Start Date: 11/30/15 Status: Ordered Results Hematology Most recent to 1 oldest [Reference Range]: WBC [5.0-10.0 9.0 10*3/uL 10*3/uL] (02/01/16 10:10 AM) RBC [3.70-5.20] 4.81 (02/01/16 10:10 AM) Hgb [12.0-16.0 14.5 gm/dL gm/dL] (02/01/16 10:10 AM) Hct [40.0-54.0 %] 42.4 % (02/01/16 10:10 AM) MCV [80.0-96.0 fL] 88.1 fL (02/01/16 10:10 AM) MCH [26.0-34.0 pg] 30.1 pg (02/01/16 10:10 AM) MCHC [32.0-36.0 34.2 gm/dL gm/dL] (02/01/16 10:10 AM) RDW [0.0-14.5 %] 12.9 % (02/01/16 10:10 AM) Platelet [150-400 293 10*3/uL 10*3/uL] (02/01/16 10:10 AM) MPV [8.8-14.8 fL] 10.0 fL (02/01/16 10:10 AM) Neutrophils [50-70 64 % %] (02/01/16 10:10 AM) Lymphocytes [20-40 23 % %] (02/01/16 10:10 AM) Monocytes [4-8 %] 9 % *HI* (02/01/16 10:10 AM) Eosinophils [0-6 %] 3 % (02/01/16 10:10 AM) Basophils [0-2 %] 1 % (02/01/16 10:10 AM) Neutro Absolute 5.78 10*3 [2.50-7.00 10*3] (02/01/16 10:10 AM) Lymph Absolute 2.04 10*3 [1.00-4.00 10*3] (02/01/16 10:10 AM) [place] Absolute 0.83 10*3 [0.20-0.80 10*3] *HI* (02/01/16 10:10 AM) Eos Absolute 0.31 10*3 [0.00-0.60 10*3] (02/01/16 10:10 AM) Baso Absolute 0.08 [0.00-0.30] (02/01/16 10:10 AM) Chemistry Most recent to 1 oldest [Reference Range]: Sodium Venous 142 mmol/L [136-144 mmol/L] (02/01/16 10:10 AM) Potassium Venous 4.3 mmol/L 1 [3.6-5.1 mmol/L] (02/01/16 10:10 AM) Calcium Ionized 1.27 mmol/L Venous [1.19-1.41 (02/01/16 10:10 AM) mmol/L] Total CO2 Venous 23 mmol/L [25-29 mmol/L] *LOW* (02/01/16 10:10 AM) Glucose Venous 109 mg/dL [70-100 mg/dL] *HI* (02/01/16 10:10 AM) BUN Venous [4-20] 22 *HI* (02/01/16 10:10 AM) Creatinine Venous 1.1 mg/dL [0.7-1.2 mg/dL] (02/01/16 10:10 AM) Venous CL [99-109 103 mmol/L mmol/L] (02/01/16 10:10 AM) 1Result Comment: This test was performed on a whole blood specimen. The presence or absence of hemolysis cannot be assessed. Hemolysis can falsely elevate potassium levels. Normals are for venous specimens only. Urinalysis Most recent to 1 oldest [Reference Range]: UA Color Yellow (02/01/16 10:22 AM) UA Appear Cloudy *ABN* (02/01/16 10:22 AM) UA pH [5.0-8.0] 5.5 (02/01/16 10:22 AM) UA Leuk Est Negative [Negative] (02/01/16 10:22 AM) UA Nitrite Negative [Negative] (02/01/16 10:22 AM) UA Protein Trace [Negative] *ABN* (02/01/16 10:22 AM) UA Glucose Negative [Negative] (02/01/16 10:22 AM) UA Ketones Negative [Negative] (02/01/16 10:22 AM) UA Urobilinogen 0.2 mg/dL [<=1.0 mg/dL] (02/01/16 10:22 AM) UA Bili [Negative] Negative (02/01/16 10:22 AM) UA Blood [Negative] Pos 3+ *ABN* (02/01/16 10:22 AM) UA Spec Grav >=1.030 [1.003-1.030] (02/01/16 10:22 AM) Type Cl Catch (02/01/16 10:22 AM) UA WBC [0-4] 0-2 (02/01/16 10:22 AM) UA RBC [0-2 /HPF] >50 /HPF *ABN* (02/01/16 10:22 AM) Epithelial Cells 5-10 (02/01/16 10:22 AM) UA Bacteria Rare (02/01/16 10:22 AM) UA Gran Cast 1-3 (02/01/16 10:22 AM) UA Mucous Present (02/01/16 10:22 AM) Immunizations Vaccine Date Refusal Reason tetanus/diphth/pertuss (Tdap) adult/adol 11/30/15 tetanus-diphth toxoids (Td) adult/adol 02/26/04 Procedures Procedure Date Related Diagnosis Body Site Collection of venous blood by venipuncture 02/01/16 Social History Social History Type Response Smoking Status Never smoker Assessment and Plan No data available for this section
--- NOTE | 2016-06-30 09:26 | NUR ---
PROVIDER DR. BRYANT AT BEDSIDE FOR EXAM.
[2016-06-30] MEDS ORDERED: NORMAL SALINE 1,000 ML IV ONE (09:31)
--- NOTE | 2016-06-30 09:37 | NUR ---
CT PT TO CT BY W/C AT THIS TIME.
--- NOTE | 2016-06-30 09:44 | NUR ---
RETURN PT RETURNED FROM RADIOLOGY AT THIS TIME.
--- OUTSIDE RECORDS SUMMARY | 2016-06-30 09:48 | XMS REPORT | Continuity of Care Document ---
Author Author [facility] Organization [facility] Address Unknown Phone Unavailable Allergies Active Description [...] Status Pt. Type Provider Facility Loc./Unit Complaint [id number] 03/02/2013 14:10:00 03/02/2013 23 :59:59 CLS Outpatient
--- NOTE | 2016-06-30 09:53 | ERPDOC ---
Departure Disposition Decision Date: June 30, 2016 Disposition Decision Time: 11:51 Disposition: 01 DISCHARGED HOME, SELF-CARE Impression Impression Impression: Primary Impression: Banuelos's palsy Severity: Moderate Condition: Stable Seen By: Physician only Referrals: LEX GUERRERO MD (Family) 3 Days Patient Instructions: Banuelos Palsy (ED) Problems/Meds/Labs Reviewed?: Yes Medications reviewed and manag: Yes Additional Instructions: You have symptoms consistent with Banuelos's Palsy. Take the steroid as prescribed to help with your symptoms. If things become worse, especially in a short amount of time, follow up immediately. Otherwise, follow up with your doctor later this week. Follow up care ordered?: Yes Mental Status: Alert, Oriented Scripts Prednisone (Prednisone) 20 Mg Tablet 60 MG PO DAILY for 7 Days, #21 TAB 0 Refills Take daily each morning Prov: JUNE,GIANNI M DO 06/30/16 HPI - CVA/Neuro General Chief Complaint: Neuro Symptoms/Deficits Stated Complaint: FREEMAN, HEMISPHERIC FACIAL WEAKNESS Time Seen by Provider: 09:31 Source: patient, family Exam Limitations: no limitations HPI - CVA/NEURO Initial Comments 45yo man presents to the ER today for a headache and facial droop. Pt has had a headache for the last 5 days; saw his chiropractor 4 days ago with minimal relief of his sx. Has not been doing anything for the pain (which is only mild and intermittent - achy). Last night, he noticed that when he spat out his toothpaste, it did not track - straight. This AM, pt had a similar problem with his toothpaste; thinks that his face is drooping on the left. Occurred At: home Onset/Timing: Gradual, Getting worse Duration: 1 week Pain/Severity Scale: Now & Worst: 3/10 Severity: mild 1 - FREEMAN pain Associated Symptoms: DENIES: confusion, fatigue, fever/chills, insomnia, loss of consciousness, muscle spasms, nausea/vomiting, numbness in legs/feet, paresthesia, ringing in ears, seizures, sleepy, slurred speech, tingling in legs /feet, trouble walking, vision changes, weakness Hx of Similar Symptoms: No Allergies: Coded Allergies: NKDA (Verified Allergy, Unknown, 06/30/16) Past History Past Medical History Metabolic: hypercholesterolemia, hypertension Cardiac: CAD Hx Echocardiogram: No Surgical History General: hernia Vaccines Hx Influenza Vaccination: No Hx Pneumococcal Vaccination: No Review of Systems ENMT Mouth/Throat: other (Possible left-sided drooping), DENIES: change in swallowing, drooling, painful swallowing Neurological General: headache All other Systems All Other Systems: Reviewed and Negative Physical Exam General General Nourishment: well nourished, well developed, appears stated age, no acute distress, adult, obese General Body Habitus: well groomed Vitals and Pain First Documented Vital Signs Date Time Temp Pulse Resp B/P Pulse Ox O2 Delivery O2 Flow Rate FiO2 06/30/16 09:21 98.9 85 16 150/85 97 Room Air Weight: Kilograms: Height (feet): Height (inches): Triage Pain Scale: RN VS reviewed by Provider: Yes Normal Exams: Head: Normocephalic w/o trauma Eyes: Pupils are PERRLA w/ EOMI, No scleral icterus, irritation ENMT: No facial trauma, nasal exudates, pharyngeal erythema Neck: Full range of motion, without adenopathy, JVD Chest/Resp: Clear all osorio, with good airflow, and symmetry bilaterally CV: Regular rate and rhythm, without murmur or gallop, Pulses 2+ all extremities Abdomen: Bowel sounds positive, soft, non-tender, non-distended Lymphatic: No lymphadenopathy, or lymphedema noted Musculoskeletal: No tenderness, or deformity noted Integumentary: No rashes, hives, or bruising noted Neurologic: Patient is alert, and oriented Psychiatric: Patient exhibits, appropriate attention Eyes (brief) Eyes Brief: found: EOMI, PERRL, not found: scleral icterus ENMT (brief) ENMT Brief: FOUND: TM clear, TM good light reflex, ear canals clear, mucosa moist, normal tonsils Neck (brief) Neck: FOUND: trachea midline, NOT FOUND: JVD, adenopathy, thyromegaly Respiratory (brief) Respiratory: FOUND: clear all osorio, equal bilaterally, symmetrical, NOT FOUND : rales, wheezes Cardiovascular (brief) Cardiac: FOUND: regular rate, regular rhythm, NOT FOUND: click, gallop, murmur , pedal edema, peripheral edema, rub Capillary Refill: <2 sec Pulses: all distal extremities, equal, strong Abdomen (brief) Abdominal Brief: FOUND: bowel normo active x4, soft, NOT FOUND: distended, hepatosplenomegaly, pulsatile mass, tender Neurologic GCS Adult : GCS Eye Opening: (4)Spontaneous GCS Verbal: (5)Oriented GCS Motor: (6)Obeys Commands Cranial Nerves: FOUND: facial asymmetry (Unable to keep from blowing air when puffing out cheeks), NOT FOUND: extraocular movements, forehead movement, hearing, shoulder shrug, smell, taste, vision DTR's : DTR Side: bilateral DTR Location: Biceps, Patellar DTR Grade: 2+ Differential Diagnoses Considering: Banuelos's Palsy, Thrombotic CVA, Hemorrhagic CVA, Delirium, DKA, Drug Overdose, Encephalitis, Hypo/hypercalcemia, Hypo/hyperglycemia, Hypo/ hypernatremia, Hypothyroid, Medication Effect, Neuropathy, Psychogenic, TIA Progress Results/Orders Orders Procedure Category Date Status Time Oxygen Administration EDM 06/30/16 Transmitted 09:31 Bgm (Ed) EDM 06/30/16 Transmitted 09:31 Nothing By Mouth (Ed EDM 06/30/16 Transmitted Only) 09:31 Cbc W/Auto LAB 06/30/16 Complete Diff-Reflex Manual 09:31 Cmp - Comprehensive LAB 06/30/16 Complete Metabolic 09:31 Troponin I W LAB 06/30/16 Complete Hemolysis Index 09:31 INR LAB 06/30/16 Complete 09:31 PTT LAB 06/30/16 Complete 09:31 EKG EKG 06/30/16 Taken 09:31 Chest 1 View RAD 06/30/16 Taken 09:31 Ct Head W/O Contrast CT 06/30/16 Taken 09:31 Normal Saline (Normal PHA 06/30/16 Complete Saline Iv) 09:31 Elevate Hob BEVERLY 06/30/16 In Process 09:31 Measure Vital Signs BEVERLY 06/30/16 In Process 09:31 Iv Lock (Ed Only) EDM 06/30/16 Verified 09:31 Cta Head W/Wo Contrast CT 06/30/16 Taken 10:30 Iohexol (Omnipaque) PHA 06/30/16 Complete 10:45 Normal Saline (Ns) PHA 06/30/16 Complete 10:46 Methylprednisolone PHA 06/30/16 Complete Sod Succ (Solu-Medrol 11:45 Ketorolac (Toradol) PHA 06/30/16 Complete 11:45 Lab Results Laboratory Tests Test 06/30/16 10:00 06/30/16 10:08 Glucometer 205mg/dL White Blood Count 5.4T/MM3 Red Blood Count 4.75M/MM3 Hemoglobin 14.1GM/DL Hematocrit 42.0% Mean Corpuscular Volume 88.4UM3 Mean Corpuscular Hemoglobin 29.7UUG Mean Corpuscular Hemoglobin Concent 33.6GM/DL RDW Standard Deviation 41.4FL Platelet Count 260T/MM3 Mean Platelet Volume 10.2UM3 Immature Granulocyte % (Auto) 0.2% Neutrophils (%) (Auto) 59.2% Lymphocytes (%) (Auto) 29.0% Monocytes (%) (Auto) 7.4% Eosinophils (%) (Auto) 3.3% Basophils (%) (Auto) 0.9% Absolute Immature Granulocyte (auto 0.01T/MM3 Absolute Neutrophils (auto) 3.2T/MM3 Absolute Lymphocytes (auto) 1.6T/MM3 Absolute Monocytes (auto) 0.4T/MM3 Absolute Eosinophils (auto) 0.2T/MM3 Absolute Basophils (auto) 0.1T/MM3 Prothromb Time International Ratio 1.12 Activated Partial Thromboplast Time 28.9SEC Turbidity < 20 Sodium Level 144MEQ/L Potassium Level 4.1MEQ/L Chloride Level 106MEQ/L Carbon Dioxide Level 26MEQ/L Anion Gap 12MEQ/L Blood Urea Nitrogen 19.0MG/DL Creatinine 1.1MG/DL Glomerular Filtration Rate Calc 72 BUN/Creatinine Ratio 17RATIO Glucose Level 193MG/DL Calculated Osmolality 284MOSM/KG Calcium Level 9.5MG/DL Total Bilirubin 0.70MG/DL Icterus Index < 2 Aspartate Amino Transf (AST/SGOT) 29U/L Alanine Aminotransferase (ALT/SGPT) 50U/L Alkaline Phosphatase 57U/L Troponin I < 0.012ng/ml Total Protein 6.5G/DL Albumin 4.1G/DL Globulin 2.4G/DL Albumin/Globulin Ratio 1.7RATIO Chemistry Specimen Hemolysis < 15 Medications Current ED Medications Sodium Chloride (Normal Saline IV) 1,000 ml @ 0 mls/hr Q0M ONCE IV Last administered on 06/30/16 10:15; Start 06/30/16 at 09:31; Stop 06/30/16 at 09:32; Status DC Iohexol 1 bottle 1 bottle [employer]-MED ONCE .ROUTE ; Start 06/30/16 at 10:45; Stop 06/30/16 at 10:46; Status DC Sodium Chloride (NS) 100 ml @ As Directed STK-MED ONCE .ROUTE ; Start 06/30/16 at 10:46; Stop 06/30/16 at 10:47; Status DC Methylprednisolone Sodium Succinate (Solu-Medrol) 125 mg O ONCE IV Last administered on 06/30/16 12:03; Start 06/30/16 at 11:45; Stop 06/30/16 at 11:46; Status DC Ketorolac Tromethamine (Toradol) 30 mg O ONCE IV Last administered on t 12:05; Start 06/30/16 at 11:45; Stop 06/30/16 at 11:46; Status DC Progress Progress No evidence of CVA or intracranial abn. Pts sx are classic for Banuelos's palsy. Following discussion with neurologist, confident in dx and treatment. Will d/c to home with treatment for Banuelos's palsy and good RTC precautions. Discussed dx, prognosis, tx, and need for f/u with pt and , who voiced understanding. EKG EKG : Rate: 60-100 Rhythm: sinus [place]: normal QRS: normal Intervals: normal ST/T: normal Interpreted by: signing physician Consult/PCP Consult/PCP : Physician Contacted: Tele-neuro Time Called: 10:04 Time of first response: 10:28 Type of discussion: Phone Consult/PCP Discussion Details No concern for CVA; consider MRI/MRA to r/o infectious/inflammatory process. If negative, may d/c to home. Xray Xray : Xray: CXR Portable Interpretation: Normal, Interpreted by Il CT CT #1: CT: Head no contrast Interpretation: Normal, Reviewed Written Report CT #2: CT: Head IV contrast Interpretation: Normal, Reviewed Written Report GIANNI BRYANT DO June 30, 2016 09:53
[2016-06-30 10:16] LABS: BASOPHILS # (AUTO) 0.1 T/MM3 (0-0.2); BASOPHILS % (AUTO) 0.9 % (0-2); EOSINOPHILS # (AUTO) 0.2 T/MM3 (0-0.5); EOSINOPHILS % (AUTO) 3.3 % (0-4); HGB - HEMOGLOBIN 14.1 GM/DL (13.5-17.5); IMMATURE GRANULOCYTE # (AUTO) 0.01 T/MM3 (0.00-0.03); IMMATURE GRANULOCYTE % (AUTO) 0.2 % (0.0-0.5); LYMPHOCYTES # (AUTO) 1.6 T/MM3 (1-4.8); MEAN CORPUSCULAR HGB 29.7 UUG (26-34); MEAN CORPUSCULAR HGB CONC(MCHC 33.6 GM/DL (31-37); MEAN CORPUSCULAR VOLUME 88.4 UM3 (80-100); MEAN PLATELET VOLUME 10.2 UM3 (9.4-12.4); MONOCYTES # (AUTO) 0.4 T/MM3 (0-0.8); MONOCYTES % (AUTO) 7.4 % (0-9.0); NEUTROPHILS #(AUTO)-ABSOLUTE 3.2 T/MM3 (1.8-7.7); NEUTROPHILS % (AUTO) 59.2 % (33-66); RED BLOOD COUNT 4.75 M/MM3 (4.50-5.90); WBC - WHITE BLOOD COUNT 5.4 T/MM3 (4.5-11.0)
[2016-06-30] MEDS ORDERED: ATOR20TA59 PO (10:17)
[2016-06-30 10:22] LABS: INR 1.12 (0.76-1.04); PROTHROMBIN TIME 12.2 SEC (9.31-12.49); PTT 28.9 SEC (24-36)
[2016-06-30 10:27] LABS: ALBUMIN 4.1 G/DL (3.5-5.0); ALBUMIN/GLOBULIN RATIO 1.7 RATIO (1.1-2.2); ALKALINE PHOSPHATASE 57 U/L (38-126); ALT (SGPT) 50 U/L (21-72); ANION GAP 12 MEQ/L (5-15); AST (SGOT) 29 U/L (17-59); BUN/CREATININE RATIO 17 RATIO (6-26); CALCIUM 9.5 MG/DL (8.4-10.2); CHLORIDE 106 MEQ/L (98-107); CO2 - CARBON DIOXIDE 26 MEQ/L (22-30); CREATININE 1.1 MG/DL (0.8-1.5); GLOMERULAR FILTRATION RATE 72; GLUCOSE 193 MG/DL (75-110); POTASSIUM 4.1 MEQ/L (3.6-5); SODIUM 144 MEQ/L (134-144); TOTAL PROTEIN 6.5 G/DL (6.3-8.2)
[2016-06-30] MEDS ORDERED: IOHEXOL 350 MG/ML 75ml INJECTION ONE (10:45)
[2016-06-30] MEDS ORDERED: NORMAL SALINE 100 ML ONE (10:46)
--- NOTE | 2016-06-30 10:50 | NUR ---
CT PT TO CT BY CART AT THIS TIME.
--- NOTE | 2016-06-30 11:01 | NUR ---
RETURN PT RETURNED FROM CT BY CART AT THIS TIME.
--- NOTE | 2016-06-30 11:24 | NUR ---
PROVIDER DR. BRYANT AT BEDSIDE TO SPEAK WITH PT AND .
[2016-06-30] MEDS ORDERED: KETOROLAC 30mg/ml INJECTION IV ONE (11:45)
[2016-06-30] MEDS ORDERED: PRED20TA PO (11:53)
[2016-06-30 12:12] VITALS: BP 151/88; PULSE 71; RESP 21; TEMP 98.9; O2SAT 96
--- NOTE | 2016-06-30 12:12 | NUR ---
DISCHARGE WRITTEN INSTRUCTIONS WITH PREDNISONE RX REVIEWED AND SENT WITH PT. PT VERBALIZES UNDERSTANDING OF DI AND MEDICATION, DENIES QUESTIONS. PT AMBULATES OUT OF ER WITH STEADY GAIT ACCOMP BY SPOUSE AT THIS TIME.
--- NOTE | 2016-07-01 09:31 | DI ---
Indication: ITS.REASON: Eval for infectious/inflammatory process PROCEDURE: CTA HEAD W CONTRAST: Encounter: Initial Comparison: Noncontrast head CT from the same date Technique: CTA: Angiographic phase axial images were acquired through the entire head following intravenous contrast administration. Multiplanar 2-D reconstructions and maximum intensity projection images were produced for additional assessment. 3-D volume rendered images of the [place] of [place] were also produced by the technologist. Automated Exposure Control and Iterative Reconstruction dose reducing techniques were utilized. Contrast: Omnipaque 350 75mL Findings: CTA head is normal. There is no arterial vascular occlusion, aneurysm or malformation is identified. Brain parenchyma is grossly normal without acute hemorrhage or midline shift. Ventricles are grossly normal. Impression: No acute process seen. There is a preliminary report by [employer]. .
--- NOTE | 2016-07-01 09:32 | DI ---
Indication: ITS.REASON: FREEMAN with left-sided facial weakness PROCEDURE: CT HEAD W/O CONTRAST: Encounter: Initial Comparison: None Technique: Axial CT images through the head were performed without contrast. Iterative Reconstruction dose reducing technique was utilized. FINDINGS: The ventricles are of normal size, shape, and configuration for the patient's age. There is no evidence of acute intracranial hemorrhage, midline displacement, or mass effect. The CT attenuation of the brain parenchyma is normal within the cerebellum, brain stem, and cerebral hemispheres. The tympanic cavities and mastoid air cells are free of appreciable disease. There are no definite fractures of the skull base, calvarium, or visualized portion of the midface. IMPRESSION: No CT evidence of acute intracranial abnormality. There is a preliminary report by [employer]. .
--- NOTE | 2016-07-01 09:34 | DI ---
Indication: ITS.REASON: FREEMAN and left-sided facial weakness PROCEDURE: CHEST 1 VIEW: Encounter: Initial Comparison: None FINDINGS: The lungs are clear. There is no abnormal airspace opacity, pleural effusion or pneumothorax identified. The heart size, pulmonary vasculature and mediastinum are within normal limits. No significant skeletal abnormality is seen. IMPRESSION: No acute cardiopulmonary abnormality. .
--- NOTE | 2016-07-02 17:09 | NEUROPD ---
Telestroke Consultation Note Patient Information Last Name:Alyssa First Name:Jose Location: [facility] Arrival Date/Time: Age:45 Weight:100.000 Gender:male Mode of Arrival: Date of service: 06/30/16 9:22 am Phone consult Clinical Presentation Vital Signs/Laboratory Vital Signs Date Time Temp Pulse Resp B/P Pulse Ox O2 Delivery O2 Flow Rate FiO2 06/30/16 12:12 98.9 71 21 151/88 96 Room Air Patient History Scheduled Aspirin (Aspirin) 81 Mg Tablet, 81 MG PO DAILY, (Reported) Atorvastatin Calcium (Atorvastatin Calcium) 20 Mg Tablet, 1 TAB PO HS, (Reported ) Fenofibrate,Micronized (Fenofibrate) 160 Mg Tablet, 160 MG PO DAILY, (Reported) Lisinopril/Hydrochlorothiazide (Lisinopril-Hctz 20-12.5 Tab) 1 Tab Tablet, 1 TAB PO DAILY, (Reported) Prednisone (Prednisone) 20 Mg Tablet, 60 MG PO DAILY Take daily each morning Verapamil Hcl (Verapamil Er) 180 Mg Tablet.er, 180 MG PO DAILY, (Reported) Allergies: Coded Allergies: NKDA (Verified Allergy, Unknown, 06/30/16) HPI Consult Start Time: 09:22 History of Present Illness pt with FREEMAN for the past 5 days, no ear pain or tinnitus. Has isolated L facial droop with drooling and decreased blinking or L eye. no vision change or weakness or numbness of extremities. ROS Neurological: see HPI Neuro Scores-NIHSS Level of Consciousness: 0 Level of Consciousness: 0 Level of Consciousness: 0 Best Gaze: 0 Visual: 0 Facial Palsy: 1 Motor Arm Left: 0 Motor Arm Right: 0 Motor Leg Left: 0 Motor Leg Right: 0 Limb Ataxia: 0 Sensory: 0 Best Language: 0 Dysarthria: 0 Extinction and Inattention: 0 NIH Score: 1 t-PA Imaging Reviewed: Yes Time Imaging Reviewed: 09:30 Imaging Findings normal head CT t-PA Recommended?: No Recommendation Impression: (1) Banuelos's palsy Recommendation discussed getting MRI vs CTA to exclude underlying structural abnormality. MRI not available, but I think getting CTA is reasonable to evaluate cause of his FREEMAN. if negative then can discharge, consider valtrex and steroids. fu with neurology as outpt REGGIE WYLIE MD July 02, 2016 17:02
== END 2016-06-30 12:12 | disposition home or self-care (01) ==
LOC: ED 09:19
DX: G51.0 Bell's palsy (principal); I10 Essential (primary) hypertension; I25.10 Atherosclerotic heart disease of native coronary artery without angina pectoris
CPT/HCPCS: 70450; 70496; 71010; 80053; 82948; 84484; 85025; 85610; 85730; 93005; 96361; 96374; 96375; 99284; J1885; J2930; J7030; J7050; Q9967